=== PATIENT | female | born 1970 | race African-American/Black ===

== ENCOUNTER 2024-12-29 23:59 | Emergency (ER) | payer MEDICAID ==
[~2024-12-29] VITALS: Ht 165.1 cm; Wt 166.0 kg
--- NOTE | 2024-12-30 01:50 | Physician Documentation ---
History of Present Illness ~ Chief Complaint: Cold, cough & congestion Stated Complaint: COLD,COUGH,CONGESTION Time Seen by MD: 01:50 HPI Patient presents to the emergency room with congestion sore throat and cough. Onset of symptoms today. She is concerned that it may turn into pneumonia she did not get out of the cold. Patient is homeless Medication Reconciliation Allergies: Coded Allergies: No Known Allergies (Unverified , 12/30/24) Review of Systems ROS All review of systems negative except as per HPI Physical Exam Vital Signs: Temperature: 98.4, Source: Oral, Heart Rate: 65, Respiratory Rate: 16, BP: 173/91, Pulse Oximetry: 97, Weight: 166.000 Oxygen Flow Rate: 0 Physical Exam General: Patient is awake, alert, oriented x4 in no acute distress and well appearing.~ Head: Normocephalic and atraumatic. Eyes: Conjunctival normal. EOMI. PERRL. ENT: Mucous membranes moist. Neck: Supple, trachea is midline. Chest: Clear to auscultation bilaterally without rales, rhonchi, or wheezes. There is no accessory muscle use or retractions. Cardiac: RRR without murmurs, gallops, or rubs. Progress Results/Orders Results/Orders Vital Signs 12/30/24 00:15 Temp 98.4 Pulse 65 Resp 16 B/P (MAP) 173/91 Pulse Ox 97 O2 Flow Rate 0 Medical Decision Making Additional information obtaine: N/A Findings Patient presents to the emergency room with viral-like symptoms. Given constellations of symptoms along with stable vitals I do not feel patient requires emergent labs or imaging. Differential Dx:Considerations: Include: Allergic rhinitis, Influenza, Otitis media, Peritonsillar abscess, Pharyngitis-Diphtheria, Pharyngitis-Streptoccal, Pharyngitis-Viral, Pneumonia, Pnuemonitis, Sinusitis, URI, Other Departure Disposition: 01 HOME / SELF CARE / HOMELESS Impression: Primary Impression: Acute respiratory infection Condition: Stable Discharge Instructions: Upper Respiratory Infection, Adult Referrals: NO PRIMARY CARE PROVIDER (PCP) Prescriptions Azithromycin (Zithromax) 250 Mg Tablet 250 MG PO DAILY, #6 TAB Take 2 tabs on day one, one tab daily thereafter Prov: PACHECO RINALDI MD 12/30/24 Education Educated: Patient Educated regarding: diagnosis, treatment, need for follow up Signature Scribe Signature: No scribe Attestation: The note accurately reflects work and decisions made by me.Pacheco Rinaldi MD 12/30/24 01:55 PACHECO RINALDI MD Dec 30, 2024 01:50
[2024-12-30] MEDS ORDERED: AZIT-164 PO (01:54)
[2024-12-30 02:04] VITALS: BP 170/89; PULSE 66; RESP 18; TEMP 98.6; O2SAT 99
== END 2024-12-30 02:05 | disposition home or self-care (01) ==
LOC: ER 23:59
DX: J22 Unspecified acute lower respiratory infection (principal)
CPT/HCPCS: 99283

== ENCOUNTER 2025-01-10 16:33 | Emergency (ER) | payer MEDICAID ==
[~2025-01-10] VITALS: Ht 165.1 cm; Wt 106.8 kg
[~2025-01-10 16:33] MED LIST: AZIT-164 PO
[2025-01-10 17:12] VITALS: BP 187/97; PULSE 69; RESP 16; TEMP 97.9; O2SAT 98
--- NOTE | 2025-01-10 18:07 | Physician Documentation ---
History of Present Illness ~ Chief Complaint: Foot pain Stated Complaint: FEET PAIN Time Seen by MD: 18:44 HPI Very pleasant 54-year-old female that reports to the emergency department for evaluation of bilateral foot pain times several weeks. Patient reports that she is currently transient waiting to be placed in housing. Reports that her feet are frequently wet which she believes has caused some of the fissures and cracking on her heels. She reports that she just completed 2 courses of antibiotics for an upper respiratory infection that diagnosed with also a few weeks ago. Denies any fever chills nausea vomiting diarrhea at this time. Patient reports that her feet hurt while walking. Patient reports that she is not diabetic. Patient denies any other symptoms at this time. Medication Reconciliation Allergies: Coded Allergies: No Known Allergies (Unverified , 12/30/24) Scheduled Azithromycin (Zithromax), 250 MG PO DAILY Cephalexin*Monohydrate* (Keflex*), 1 CAP PO QID Terbinafine Hcl (Terbinafine Hcl), 1 APPLIC TOP Q12H Review of Systems ROS As stated above in the HPI, otherwise all systems are reviewed and negative. Physical Exam Vital Signs: Temperature: 97.9, Source: Oral, Heart Rate: 69, Respiratory Rate: 16, BP: 187/97, Pulse Oximetry: 98, Weight: 106.820 Oxygen Flow Rate: 0 Physical Exam VITALS: Reviewed and as above. GENERAL: Alert, no apparent distress. HEENT: Normocephalic, atraumatic, PERRL, EOMI, dry mucosa, no erythema RESPIRATORY: Lungs clear, normal breath sounds, no respiratory distress. CHEST: No accessory muscle use, no retractions CV: Regular rate, rhythm, no edema, no murmur, No: JVD GI: Soft, non-tender, bowels sounds present, no rebound, guarding, or rigidity BACK: No CVA tenderness, or swelling MUSCULOSKELETAL No deformities, no edema SKIN: Warm and dry, no rash, coloration noted to the dorsal aspects of her feet bilaterally could be consistent with fungus. Edema noted to her feet bilaterally fissures noted to the heels of her feet bilaterally on exam. NEURO: Oriented x4, No motor or sensory deficit PSYCH: Normal mood and affect, no agitation Progress Results/Orders Results/Orders Orders - DES OBANDO INTERVENTIONAL PHYSICIAN Cbc/Diff (01/10/25 17:30) CMP (01/10/25 17:30) PBNP (01/10/25 17:37) General Nursing Order (01/10/25 20:31) Terbinafine Cream (Lamisil Cream) (01/10/25 21:20) Completed Orders - TOPHERDES CRUZ INTERVENTIONAL PHYSICIAN Cephalexin Capsule (Keflex Capsule) (01/10/25 20:25) Terbinafine Cream (Lamisil Cream) (01/11/25 08:00) Medications Received in ER Medications (Trade) Dose Ordered Sig/Felisha Route PRN Reason Start Time Stop Time Status Last Admin Dose Admin (Keflex capsule) 500 mg ONCE ONCE PO 01/10/25 20:25 01/10/25 20:26 DC 01/10/25 21:29 500 MG Vital Signs 01/10/25 17:12 Temp 97.9 Pulse 69 Resp 16 B/P (MAP) 187/97 Pulse Ox 98 O2 Flow Rate 0 Medical Decision Making Additional information obtaine: other Findings Patient Context: Transient female, age >50, nondiabetic, presents with bilateral foot swelling, fissures, and pain on heels and feet. Patient refused laboratory evaluation and requests oral and topical medications. No history of diabetes or immunocompromising conditions reported. Assessment: Bilateral foot fissures and pain, likely tinea pedis (fungal infection), with possible secondary bacterial infection given significant swelling and clinical symptoms. No systemic symptoms (fever, chills) reported at this time. No laboratory or imaging studies performed due to patient refusal. Medical Decision-Making: Topical antifungal therapy is indicated as first-line for tinea pedis. Allylamines (e.g., terbinafine) are slightly more effective than azoles and can be used once or twice daily for 12 weeks. Oral antibiotic therapy (cephalexin) is reasonable given the presence of significant swelling, fissures, and possible secondary bacterial infection. IDSA guidelines recommend empiric therapy with a first-generation cephalosporin for mild skin and soft tissue infections targeting gram-positive cocci (St aphylococcus aureus, beta-hemolytic streptococci). No evidence supports routine use of systemic antibiotics for non-infected ulcers, but antibiotics are appropriate when infection is suspected based on clinical findings. Advised to follow up with primary care provider if able to establish care; otherwise, return to emergency department for re-evaluation if symptoms worsen or do not improve. Plan: Prescribe topical terbinafine cream, apply to affected areas twice daily for 12 weeks. Prescribe oral cephalexin for 7 days. Chronometer Assembler on foot hygiene and monitoring for signs of systemic infection. Follow-up instructions as above. Risk/Benefit Discussion: Risks of therapy include potential adverse drug reactions and development of resistance; benefits include symptom relief and prevention of progression to more severe infection. Patient declined laboratory evaluation, limiting ability to tailor therapy to specific pathogens. Disposition: Stable for outpatient management at this time. Return precautions and follow-up plan discussed. General Diff Dx:Considerations: Include: Abrasion, Contusion, Fracture, Hematoma, Laceration, Malunion, Neurovascular injury, Open fracture, Sprain, Ulcer, Other Knee Diff Dx:Considerations: Include: Abrasion, Arthritis, Contusion, DJD, Fracture-femur, Fracture-fibula, Fracture-patella, Fracture-tibia, Gout, Hematoma, Laceration, Meniscus injury, Neurovascular injury, Open fracture, Rheumatoid arthritis, Septic, Sprain, Sprain-MCL, Sprain-LCL, Sprain-ACL, Sprain-PCL, Other Ankle Diff Dx:Considerations: Include: Abrasion, Arthritis, Contusion, DJD, Fracture-metatarsal, Fracture-fibula, Fracture-tarsal, Fracture-tibia, Gout, Hematoma, Laceration, Malunion, Neurovascular injury, Nonunion, Open fracture, Osteomyelitis, Rheumatoid arthritis, Sprain, Septic, Ulcer, Other Foot Diff Dx:Considerations: Include: Abrasion, Arthritis, Cellulitis, Contusion, Dislocation, DJD, Fracture-metatarsal, Fracture-phalynx, Fracture- tarsal, Gout, Hematoma, Ingrown toenail, Laceration, Malunion, Neurovascular injury, Open fracture, Paronychia, Puncture, Rheumatoid, Sprain, Septic, Subungual hematoma, Ulcer, Other Toe Diff Dx:Considerations: Include: Abrasion, Cellulitis, Contusion, Dislocation, Felon, Fracture, Hematoma, Laceration, Neurovascular injury, Open fracture, Paronychia, Subungual hematoma, Other Departure Disposition: 01 HOME / SELF CARE / HOMELESS Impression: Primary Impression: Tinea pedis Additional Impressions: Secondary infection of skin Fissures in skin of both feet Erythema Condition: Stable Additional Instructions: You are being treated for a foot infection with cephalexin (an oral antibiotic) and terbinafine (a topical antifungal cream). Please follow these instructions carefully to help your feet heal and prevent complications. Medications Take cephalexin exactly as prescribed. Do not skip doses and finish the entire course, even if you start to feel better. Apply terbinafine cream to the affected areas of your feet as directed, usually once or twice daily. Wash and dry your feet before applying the cream. Foot Care Instructions Keep your feet clean and dry. Wash daily with mild soap and water, then dry thoroughly, especially between the toes. Change socks daily and wear breathable shoes. Avoid tight or non-ventilated footwear. Do not walk barefoot, especially in public places. Inspect your feet every day for new redness, swelling, blisters, or sores. If you have open sores or fissures, cover them with a clean, dry bandage. Elevate your feet when sitting to help reduce swelling. Avoid picking at or scratching the affected areas. Strict Return Precautions Return to the emergency department or seek medical care immediately if you experience any of the following: Fever, chills, or feeling generally unwell Increasing redness, warmth, or swelling in your feet Spreading rash or red streaks up your leg Pus or foul-smelling drainage from your feet Severe pain or inability to walk No improvement or worsening of symptoms after 35 days of treatment Follow-Up If you are able to establish care with a primary care provider, follow up as soon as possible for re-evaluation. If you cannot establish care or your symptoms worsen, return to the emergency department. Additional Tips Good foot hygiene and prompt treatment of fungal infections can help prevent future infections and complications. If you have swelling, support stockings may help. Avoid standing for long periods. If you have any questions about your medications or foot care, please contact your healthcare provider. Referrals: NO PRIMARY CARE PROVIDER (PCP) Prescriptions Terbinafine Hcl (TERBINAFINE HCL) 1 % Cream..g. 1 APPLIC TOP Q12H for 14 Days, #30 GM 0 Refills Prov: DES OBANDOP 01/10/25 Cephalexin*Monohydrate* (Keflex*) 500 Mg Capsule 1 CAP PO QID for 7 Days, #28 CAP Prov: DES OBANDOP 01/10/25 Education Educated: Patient Educated regarding: diagnosis, treatment, need for follow up Signature Scribe Signature: A Attestation: Scribed for Des Obando by YARELI Corona . 01/10/25 20:22 DES OBANDO Jan 10, 2025 18:07
[2025-01-10] MEDS ORDERED: CEPH-585 PO (20:21)
[2025-01-10] MEDS: terbinafine cream 30gm TP SCH (21:20)
[2025-01-10] MEDS ORDERED: TERB30CR8 TOP (21:24)
[2025-01-11] MEDS ORDERED: terbinafine cream 30gm TP SCH (08:00)
== END 2025-01-10 22:24 | disposition home or self-care (01) ==
LOC: ER 16:33
DX: B35.3 Tinea pedis (principal)
CPT/HCPCS: 99283

== ENCOUNTER 2025-01-31 22:33 | Emergency (ER) | payer MEDICAID ==
[~2025-01-31] VITALS: Ht 165.1 cm; Wt 115.0 kg
[~2025-01-31 22:33] MED LIST changes: -AZIT-164 PO; +TERB30CR8 TOP
--- NOTE | 2025-02-01 00:11 | Physician Documentation ---
History of Present Illness ~ Chief Complaint: Foot pain Stated Complaint: BACK PAIN Time Seen by MD: 00:06 HPI Patient is a very pleasant 54-year-old female that presents to the emergency department for re-evaluation of her feet that she presented the 12 of January for initially. Patient at that time was placed on terbinafine b.i.d.. Patient's feet have improved greatly at this time. Patient denies any new symptoms no fever chills nausea vomiting diarrhea. Tetanus witin 5 years: No Medication Reconciliation Allergies: Coded Allergies: No Known Allergies (Unverified , 12/30/24) Scheduled Terbinafine Hcl (Terbinafine Hcl), 1 APPLIC TOP Q12H Review of Systems ROS As stated above in the HPI, otherwise all systems are reviewed and negative. Physical Exam Vital Signs: Temperature: 97.9, Heart Rate: 63, Respiratory Rate: 14, BP: 163/ 85, Pulse Oximetry: 98, Weight: 115.000 Oxygen Flow Rate: 0 Physical Exam VITALS: Reviewed and as above. GENERAL: Alert, no apparent distress. HEENT: Normocephalic, atraumatic, PERRL, EOMI, dry mucosa, no erythema RESPIRATORY: Lungs clear, normal breath sounds, no respiratory distress. CHEST: No accessory muscle use, no retractions CV: Regular rate, rhythm, no edema, no murmur, No: JVD GI: Soft, non-tender, bowels sounds present, no rebound, guarding, or rigidity BACK: No CVA tenderness, or swelling MUSCULOSKELETAL No deformities, no edema SKIN: Warm and dry, dry skin with callus is noted to bilateral heels. NEURO: Oriented x4, No motor or sensory deficit PSYCH: Normal mood and affect, no agitation Progress Results/Orders Results/Orders Vital Signs 01/31/25 22:39 Temp 97.9 Pulse 63 Resp 14 B/P (MAP) 163/85 Pulse Ox 98 O2 Flow Rate 0 Medical Decision Making Additional information obtaine: other Findings 54-year-old female presented for re-evaluation of bilateral feet following initial ED visit on January 12 for suspected tinea pedis. At that time, oral terbinafine was initiated twice daily. On today's assessment, the patient reports marked improvement in symptoms and denies fever, chills, nausea, vomiting, or diarrhea. Physical exam reveals significant resolution of prior findings. No new lesions, erythema, or signs of secondary infection. No evidence of systemic involvement. Medical decision-making: Diagnosis: Tinea pedis, likely dermatophyte etiology. Treatment: Oral terbinafine, which is supported as a first-line agent for tinea pedis due to its superior efficacy compared to griseofulvin and comparable efficacy to azoles. Clinical improvement is expected within 2-4 weeks of therapy, with mycological cure rates exceeding 80%. Safety: Terbinafine is generally well tolerated; most common adverse effects are mild GI symptoms, which the patient denies. No evidence of diabetic foot infection, osteomyelitis, or complications requiring further intervention. Discharge plan: Complete current course of terbinafine as prescribed. Monitor for recurrence or adverse effects; patient education provided regarding signs of relapse and when to seek care. No additional laboratory or imaging required at this time. Follow-up with PCP or dermatology if symptoms recur or new findings develop. Summary: Patient demonstrates excellent clinical response to oral terbinafine for tinea pedis, with no complications or adverse effects. No further acute intervention required. General Diff Dx:Considerations: Include: Abrasion, Contusion, Fracture, Hematoma, Laceration, Malunion, Neurovascular injury, Open fracture, Sprain, Ulcer, Other Knee Diff Dx:Considerations: Include: Abrasion, Arthritis, Contusion, DJD, Fracture-femur, Fracture-fibula, Fracture-patella, Fracture-tibia, Gout, Hematoma, Laceration, Meniscus injury, Neurovascular injury, Open fracture, Rheumatoid arthritis, Septic, Sprain, Sprain-MCL, Sprain-LCL, Sprain-ACL, Sprain-PCL, Other Ankle Diff Dx:Considerations: Include: Abrasion, Arthritis, Contusion, DJD, Fr acture-metatarsal, Fracture-fibula, Fracture-tarsal, Fracture-tibia, Gout, Hematoma, Laceration, Malunion, Neurovascular injury, Nonunion, Open fracture, Osteomyelitis, Rheumatoid arthritis, Sprain, Septic, Ulcer, Other Foot Diff Dx:Considerations: Include: Abrasion, Arthritis, Cellulitis, Contusion, Dislocation, DJD, Fracture-metatarsal, Fracture-phalynx, Fracture- tarsal, Gout, Hematoma, Ingrown toenail, Laceration, Malunion, Neurovascular injury, Open fracture, Paronychia, Puncture, Rheumatoid, Sprain, Septic, Subungual hematoma, Ulcer, Other Toe Diff Dx:Considerations: Include: Abrasion, Cellulitis, Contusion, Dislocation, Felon, Fracture, Hematoma, Laceration, Neurovascular injury, Open fracture, Paronychia, Subungual hematoma, Other Departure Disposition: 01 HOME / SELF CARE / HOMELESS Impression: Primary Impression: General medical exam Additional Impression: Foot pain Condition: Stable Additional Instructions: You were treated for athletes foot (tinea pedis) with terbinafine. Your feet have improved, and you have no new symptoms. Please follow these instructions to help keep your feet healthy and prevent the infection from coming back. Finish your medication as prescribed, even if your feet look better. Terbinafine is very effective at curing athletes foot when taken as directed. Keep your feet clean and dry. Wash your feet daily with soap and water, and dry them completely, especially between the toes. Wear well-fitting, ventilated shoes. Change your shoes and socks at least once a day to keep your feet dry. Do not share towels, shoes, or socks with others to prevent spreading the infection. Wash your hands after touching your feet or applying any creams or medications. Watch for signs of infection coming back, such as itching, burning, cracking, or scaling of the skin. If these symptoms return, contact your doctor. Call your doctor if you notice any new symptoms like redness, swelling, pain, pus, fever, or if your infection does not improve. For external use only: If you are using a cream, do not apply it to open wounds or use it inside your mouth or eyes. Most people recover fully with proper treatment and care. Terbinafine is safe and well tolerated, but let your doctor know if you have any side effects. If you have any questions or concerns, please contact your healthcare provider. Referrals: NO PRIMARY CARE PROVIDER (PCP) Education Educated: Patient Educated regarding: diagnosis, treatment, need for follow up Signature Scribe Signature: A Attestation: Scribed for Emergency,Department by YARELI Corona . 02/01/25 00:25 DES OBANDO Feb 01, 2025 00:11
[2025-02-01 00:30] VITALS: BP 160/82; PULSE 60; RESP 18; TEMP 98.6; O2SAT 99
== END 2025-02-01 00:31 | disposition home or self-care (01) ==
LOC: ER 22:34
DX: Z00.00 Encounter for general adult medical examination without abnormal findings (principal); M79.672 Pain in left foot; M79.671 Pain in right foot
CPT/HCPCS: 99282

== ENCOUNTER 2025-02-13 23:25 | Emergency (ER) | payer MEDICAID ==
[~2025-02-13] VITALS: Ht 165.1 cm; Wt 157.0 kg
[2025-02-13 23:38] VITALS: BP 145/81; PULSE 96; RESP 19; O2SAT 98
[2025-02-13] MEDS ORDERED: GUAI400T92 PO (23:51)
[2025-02-13] MEDS ORDERED: AMOX-117 PO (23:51)
--- NOTE | 2025-02-13 23:51 | Physician Documentation ---
History of Present Illness ~ Chief Complaint: Cold, cough & congestion Stated Complaint: NASAL CONGESTION Time Seen by MD: 23:37 Source: patient Mode of Arrival: EMS Exam Limitations: no limitations HPI 54-year-old female brought in by EMS requesting a congestion for nasal congestion starting today. Patient states that if she blew her nose she would have yellow nasal discharge no fevers chest pain shortness of breath. Maxillary sinus tenderness. Concerned because her roommates 1 in the air conditioner that she is getting an infection Medication Reconciliation Allergies: Coded Allergies: No Known Allergies (Unverified , 12/30/24) Scheduled Amox Tr/Potassium Clavulanate (Augmentin 875-125 Tablet), 1 TAB PO Q12H Guaifenesin (Guaifenesin), 1 TAB PO Q8H Terbinafine Hcl (Terbinafine Hcl), 1 APPLIC TOP Q12H Past Medical History Past Medical History: No Pertinent History Past Surgical History: noncontributory Lives with: Other Lives In: Home Occupation: disabled Review of Systems All Other Systems at this time: Reviewed and Negative ENT: Reports: see HPI Physical Exam Vital Signs: RN Vital Signs have been reviewed: Yes, Temperature: 98.0, Source: Oral, Heart Rate: 96, Respiratory Rate: 19, BP: 145/81, Pulse Oximetry: 98, Weight: 157.000 Physical Exam General: Alert, no apparent distress. HEENT: PERRL, EOMI, no injection, moist mucous membranes. Maxillary sinus tenderness to percussion no lymphadenopathy Neck: Full range of motion. Respiratory: Lungs clear, no respiratory distress. Chest: No accessory muscle use. Cardiovascular: Regular rate and rhythm, no murmurs. Extremities: Normal range of motion, no deformity. Neurologic: Oriented x4. Psychiatric: Normal mood and affect. Skin: Normal color, warm and dry. No edema, no ecchymosis. Progress Results/Orders Results/Orders Vital Signs 02/13/25 23:38 Temp 98.0 Pulse 96 Resp 19 B/P (MAP) 145/81 Pulse Ox 98 Medical Decision Making Additional information obtaine: N/A Findings Symptoms starting approximately 24 hours although yellow nasal discharge and maxillary sinus tenderness antibiotic and decongestant prescribed an ordered prior to discharge to follow up with urgent care primary care Vital signs reassuring Differential Dx:Considerations: Include: Allergic rhinitis, Influenza, Sinusitis, URI Departure Time of Disposition: 23:49 Disposition: 01 HOME / SELF CARE / HOMELESS Impression: Primary Impression: Sinusitis Condition: Stable Discharge Instructions: Sinus Infection, Adult Additional Instructions: Take antibiotics and medication as prescribed and follow up with urgent care primary care for further treatment and evaluation Referrals: NO PRIMARY CARE PROVIDER (PCP) Prescriptions Guaifenesin (Guaifenesin) 400 Mg Tablet 1 TAB PO Q8H for cough for 5 Days, #15 TAB 0 Refills Prov: ZENAIDA CUEVAS NP 02/13/25 Amox Tr/Potassium Clavulanate (Augmentin 875-125 Tablet) 1 Each Tablet 1 TAB PO Q12H for 7 Days, #14 TAB Prov: ZENAIDA CUEVAS NP 02/13/25 Education Educated: Patient Educated regarding: diagnosis, treatment, need for follow up Signature Scribe Signature: No scribe Attestation: The note accurately reflects work and decisions made by me.Zenaida DOWNS 02/13/25 23:51 ZENAIDA CUEVAS NP Feb 13, 2025 23:51
[2025-02-14] VITALS: TEMP 98
[2025-02-14] MEDS: guaiFENesin ER 600mg tablet PO STA (00:19)
[2025-02-14] MEDS: amox tr/potassium clavulanate 875/125mg TAB PO ONE (00:19)
== END 2025-02-14 00:55 | disposition home or self-care (01) ==
LOC: ER 23:26
DX: J32.9 Chronic sinusitis, unspecified (principal); Z79.899 Other long term (current) drug therapy
CPT/HCPCS: 99283

== ENCOUNTER 2025-02-14 16:03 | Emergency (ER) | payer MEDICAID ==
[~2025-02-14] VITALS: Ht 165.1 cm; Wt 136.4 kg
[~2025-02-14 16:03] MED LIST changes: +AMOX-117 PO; +GUAI400T92 PO
[2025-02-14 16:17] VITALS: TEMP 97.1
--- NOTE | 2025-02-14 17:45 | Physician Documentation ---
History of Present Illness ~ General Chief Complaint: See Chief Complaint Stated Complaint: GENERAL Time Seen by MD: 17:16 OK to notify your PCP?: Yes Primary Medical Doctor: none Source: patient Mode of Arrival: POV Exam Limitations: no limitations History of Present Illness Initial Comments 54-YEAR-OLD FEMALE WHO IS HERE ASKING IF SHE CAN SLEEP IN THE LOBBY BECAUSE SHE STATES [facility] CAUS[facility] TO GET SICK. APPARENTLY SHE WAS SEEN HERE YESTERDAY AND GIVEN A PRESCRIPTION FOR AMOXICILLIN. SHE THOUGHT THAT SHE COULD GET ON [facility] WHICH SHE STATES IS A BUS TO GET TO ANOTHER CITY BUT LEARNED THAT [facility] DOES NOT RUN ON SUNDAYS WHICH IS WHY SHE WAS HOPING TO STAY IN THE LOBBY HERE. NO OTHER CONCERNS OR COMPLAINTS. Medication Reconciliation Allergies: Coded Allergies: No Known Allergies (Unverified , 12/30/24) Scheduled Amox Tr/Potassium Clavulanate (Augmentin 875-125 Tablet), 1 TAB PO Q12H Guaifenesin (Guaifenesin), 1 TAB PO Q8H Terbinafine Hcl (Terbinafine Hcl), 1 APPLIC TOP Q12H Past Medical History Past Medical History: No Pertinent History Past Surgical History: noncontributory Lives with: Other Lives In: Home Occupation: disabled Review of Systems All Other Systems at this time: Reviewed and Negative Physical Exam Physical Exam Vital Signs: Temperature: 97.1, Source: Temporal, Heart Rate: 69, Respiratory Rate: 18, BP: 170/60, Pulse Oximetry: 100, Weight: 136.360 Oxygen Flow Rate: 0 Physical Exam GENERAL APPEARANCE: ALERT, WD/WN. NAD. HEENT: NCAT, PERRL, EOMI. NECK: SUPPLE, TRACHEA MIDLINE. CARDIOVASCULAR: RRR. NO M/R/G. LUNGS: CTAB. BREATHING UNLABORED EXTREMITIES: NORMAL INSPECTION. NO EDEMA. SKIN: WARM/DRY, NORMAL COLOR NEUROLOGICAL: ALERT AND ORIENTED X4, NORMAL GAIT. PSYCHIATRIC: AFFECT CONGRUENT WITH MOOD. 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, HALF-WAY, MENTAL HEALTH Departure Time of Disposition: 17:44 Disposition: 01 HOME / SELF CARE / HOMELESS Impression: Primary Impression: Homeless family Condition: Stable Discharge Instructions: General Discharge Instructions Additional Instructions: We can not allow you to sleep in the lobby I did [facility] as this [facility] help with decrease risk for illness but you declined Referrals: NO PRIMARY CARE PROVIDER (PCP) Education Educated: Patient Educated regarding: diagnosis, treatment, need for follow up Signature Scribe Signature: x Attestation: BRIAN Kearney Feb 14, 2025 17:45
[2025-02-14 18:02] VITALS: BP 152/64; PULSE 57; RESP 14; O2SAT 100
== END 2025-02-14 18:06 | disposition home or self-care (01) ==
LOC: ER 16:04
DX: Z00.00 Encounter for general adult medical examination without abnormal findings (principal); Z59.00 Homelessness unspecified; Z79.899 Other long term (current) drug therapy
CPT/HCPCS: 99282